=== PATIENT | male | born 1955 | race Caucasian/White ===

== ENCOUNTER 2019-01-04 01:07 | Inpatient (IN) ==
[2019-01-04] MEDS ORDERED: *HR* HYDROcodone/Acet 5/325 mg TABLET PO PRN (02:45)
[2019-01-04] MEDS ORDERED: Dextrose Gel 15 GM/37.5 ML TUBE PO PRN ×2 (02:45)
[2019-01-04] MEDS ORDERED: *HR* Dextrose 50 % in Water (Syg) 50 ML SYRINGE IVP PRN (02:45)
[2019-01-04] MEDS ORDERED: Acetaminophen 325 MG TABLET PO PRN (02:45)
[2019-01-04] MEDS ORDERED: Naloxone 0.4 MG/ML INJ IVP PRN (02:45)
[2019-01-04] MEDS ORDERED: Ondansetron 4 MG/2 ML VIAL IVP PRN (02:45)
[2019-01-04] MEDS ORDERED: D5% in Water 1,000 ML IVC PRN (02:45)
--- NOTE | 2019-01-04 02:56 | Internal Med History&Physical ---
Date of Encounter: 01/04/19 Time of Encounter: 01:30 Internal Medicine - H&P: HPI Chief complaint: fever, chills Admitted From: Hospital to Hospital Transfer Plans for Post Hospital Care: Home History of present illness: Mr. Snowden is a 63 year old male who presents in transfer from [facility] ER for concerns of severe sepsis. He had prostate biopsy performed on 01/02/[address] Dexter. He then developed fevers, chills, and night sweats last night prompting him to go to the ER. In the ER at [place], he was found to have evidence of sepsis. He was fluid resuscitated. Blood cultures and urine cultures were obtained, and he was given antibiotics. I was contacted by ER staff to transfer patient to [facility]. I agreed with the plan of care but also insisted that they give Flagyl in addition to Zosyn he received. Upon arrival to [facility], patient feels significantly better. I saw him shortly after his arrival. He denies any cough, congestion, shortness of breath, chest pain, abdominal pain, or perineal pain. He has had no flank pain, dysuria, or urgency. He has had some trace to moderate hematuria after his biopsy. Upon further questioning, he states he received a dose of antibiotics during his biopsy. He felt well afterwards until roughly 24 hours later. He denies any symptoms or concerns otherwise. Past Med Surg Social Fam HX - Past Medical History Attestation: Yes The following information was validated with the patient. Source: patient, old records reviewed Medical history: CHF, diabetes, GERD, hyperlipidemia, hypertension, myocardial infarction, other Additional medical history: sleep apnea-pt has cpap at home, settings unknown Psychiatric history: no psych history - Past Surgical History Surgical History: coronary bypass (CABG), LE stent(s) Additional surgical history: BIOPSY ON PROSTATE 01-02-19 - Social History Smoking Status: Current every day smoker Packs per day: 1/2 ppd Smokeless Tobacco Status: No Alcohol use: none Drug use: none Current living situation: Home, With Family Activity Level: Independent ambulation Recent Out of Country Travel Within the Last 8 Weeks: No - Family History Mother Hx Family Cardiac Disorders: Yes Hx Family Endocrine Disorder: Yes Internal Medicine - H&P: Meds Cyanocobalamin (B-12) [Vitamin B12] 1,000 mcg PO DAILY 01/03/19 [History] Dulaglutide [Trulicity] 0.75 mg SQ QWEEK 01/03/19 [History] Furosemide [Lasix] 20 mg PO DAILY 01/03/19 [History] Gabapentin [Neurontin] 300 mg PO HS 01/03/19 [History] Metformin HCl [Fortamet] 1,000 mg PO BID 01/03/19 [History] Nitroglycerin [Nitrostat] 0.4 mg SL PRN PRN 01/03/19 [History] Rosuvastatin [Crestor] 40 mg PO HS 01/03/19 [History] Sertraline [Zoloft] 50 mg PO DAILY 01/03/19 [History] Sitagliptin Phos/Metformin HCl [Janumet 50-1,000 mg Tablet] 1 each PO BID 01/03/19 [History] Zolpidem Tartrate 10 mg PO HS 01/03/19 [History] dilTIAZem HCl [Diltiazem ER] 240 mg PO DAILY 01/03/19 [History] Allergy/AdvReac Type Severity Reaction Status Date / Time No Known Allergies Allergy Verified 12/26/15 08:38 - Constitutional Constitutional: chills, fatigue, fever(s), weakness, no night sweats - EENT Eyes: no blurry vision, no change in vision Ears: no ear pain, no tinnitus Nose, mouth and throat: no nasal congestion, no sinus pressure, no sore throat - Cardiovascular Cardiovascular ROS IM: no chest pain, no dyspnea - Respiratory Respiratory: no cough, no dyspnea, no dyspnea on exertion, no chest congestion, no excessive phlegm production - Gastrointestinal Gastrointestinal: nausea, no abdominal pain, no diarrhea, no hematemesis, no hematochezia, no melena, no vomiting - Genitourinary Genitourinary ROS male: difficulty urinating, hematuria, no dysuria, no flank pain - Musculoskeletal Musculoskeletal ROS IM: no arthralgias, no back pain - Integumentary Integumentary IM: no rash, no jaundice - Neurological Neurological ROS: no disequilibrium, no dizziness, no focal weakness, no frequent falls, no headache(s) - Psychiatric Psychiatric: no anxiety, no depression - Endocrine Endocrine IM: no polydipsia, no polyuria - Allergic/Immunologic Allergic/Immunologic: no wheezing, no GI upset with certain foods - Constitutional Vitals: Temp Pulse Resp BP Pulse Ox 98.8 F 97 14 118/63 98 01/04/19 01:34 01/04/19 01:34 01/04/19 01:34 01/04/19 01:34 01/04/19 02:05 General appearance: Present: cooperative, mild distress, A&O X 3, pleasant, answers questions appropriately Exam: see below - Head Head exam: Present: atraumatic, normal inspection - Eye Eye exam: Present: EOMI, PERRL. Absent: scleral icterus Pupils: Present: normal accommodation - ENT ENT exam: Present: mucous membranes dry, normal exam, normal oropharynx - Neck Neck exam general surgery: Present: full ROM, supple, trachea midline. Absent: lymphadenopathy, tenderness, nuchal rigidity, thyromegaly - Respiratory Respiratory exam: Present: CTAB. Absent: chest wall tenderness, rales, rhonchi, wheezes - Cardiovascular Cardiovascular exam: Present: distant heart sounds, RRR, +S1, +S2, tachycardia (HR 110's). Absent: diastolic murmur, systolic murmur - GI/Abdominal GI/Abdominal exam: Present: normal bowel sounds, soft. Absent: guarding, hepatomegaly, mass, rebound, splenomegaly, tenderness - Extremities Exam Extremities exam: Present: full ROM, warm, radial pulses palpable and symmetrical. Absent: calf tenderness, pedal edema, tenderness - Back Exam Back exam: Present: normal inspection. Absent: CVA tenderness (L), CVA tenderness (R) - Neurological Exam Neurological exam: Present: alert, CN II-XII intact, oriented X3, no focal deficits, strengths equal and symetr throughout - Psychiatric Psychiatric exam: Present: normal affect, normal mood - Skin Skin exam: Present: dry, intact, warm. Absent: rash Internal Med - H&P Results - Labs Labs: I reviewed the labs from [place] and include the following: WBC 15.6 Hemoglobin 13.7 Hematocrit 39.6 Platelets 261 PT 11.4 PTT 33.4 INR 1.0 Sodium 136 Potassium 3.9 Chloride 102 Carbon dioxide 26 BUN 13 Creatinine 0.82 Glucose 162 Lactic acid 2.3, repeat 1.6 Urinalysis suggestive of UTI with blood - Diagnostic Studies Chest x-ray Status: image reviewed by me (negative) - Assessment and Plan (1) Sepsis Current Visit: Yes Status: Acute Assessment and plan: 1. S/P fluid resuscitation at [place]. 2. Blood and urine cultures collected at [place]. 3. Continue Zosyn and Flagyl for suspected /GI source. 4. No history to suggest prostatitis or prostate abscess. 5. Consult urology given sepsis post-procedure. Question need for imaging. Qualifiers: Sepsis type: sepsis due to unspecified organism Qualified Code(s): A41.9 - Sepsis, unspecified organism (2) Type 2 diabetes mellitus Current Visit: Yes Status: Chronic Assessment and plan: 1. Hold oral meds. 2. Will place on SSI and monitor glucose closely. 3. Adjust insulin dosing accordingly. Qualifiers: Diabetes mellitus usp insulin use: without supervisor long goods use Diabetes mellitus complication status: without complication Qualified Code(s): E11.9 - Type 2 diabetes mellitus without complications (3) CAD (coronary artery disease) Current Visit: Yes Status: Chronic Assessment and plan: 1. No symptoms of angina. 2. Continue home meds as appropriate once meds verified. 3. Obtain baseline EKG and monitor on telemetry. Qualifiers: Coronary Disease-Associated Artery/Lesion type: [place] artery [place] vs. transplanted heart: [place] heart Associated angina: without angina Qualified Code(s): I25.10 - Atherosclerotic heart disease of [place] coronary artery without angina pectoris (4) UTI (urinary tract infection) Current Visit: Yes Status: Suspected Assessment and plan: 1. Patient denies symptoms. 2. Follow urine culture. 3. Antibiotics as above. Qualifiers: Urinary tract infection type: acute cystitis Hematuria presence: with hematuria Qualified Code(s): N30.01 - Acute cystitis with hematuria (5) DVT prophylaxis Current Visit: Yes Status: Acute Assessment and plan: 1. Heparin SQ.
[2019-01-04] MEDS: 0.9 % Sodium Chloride w KCl 20 MEQ/1,000 ML MLS IVC SCH ×2 (03:53→11:30)
[2019-01-04 03:55] LABS: Basophils # 0.1 K/mcL (0.0-0.2); Basophils % 0.4 %; Eosinophils # 0.2 K/mcL (0.0-0.6); Eosinophils % 1.1 %; Hematocrit 40.6 % (37.5-50.1); Hemoglobin 13.4 g/dL (12.9-16.9); Immature Granulocytes % 0.4 % (0-4); Lymphocytes % 12.1 %; Mean Corpuscular Volume 90.8 fL (83.0-100.0); Mean Platelet Volume 10.6 fL (9.4-12.4); Monocytes # 0.7 K/mcL (0.0-1.3); Neutrophils # 13.6 K/mcL (1.6-8.9); Platelet Count 222 K/mcL (140-400); Red Blood Count 4.47 M/mcL (4.19-5.50); Red Cell Distribution Width 12.9 % (11.5-14.5)
[2019-01-04 04:13] LABS: Alanine Aminotransferase 16 Units/L (7-52); Albumin 4.1 g/dL (3.5-5.7); Albumin/Globulin Ratio 1.7 (1.1-2.2); Alkaline Phosphatase 73 Units/L (34-104); Aspartate Amino Transferase 17 Units/L (13-39); BUN/Creatinine Ratio 15 (6-26); Bilirubin,Total 0.6 mg/dL (0.3-1.0); Blood Urea Nitrogen 12 mg/dL (8-23); Calcium 8.9 mg/dL (8.6-10.3); Carbon Dioxide 22 mEq/L (23-29); Chloride 106 mEq/L (98-107); Globulin 2.4 g/dL (2.4-3.5); Glucose 132 mg/dL (70-105); Magnesium 1.4 mg/dL (1.6-2.6); Osmolality,Calculated 290 (280-300); Phosphorous 3.5 mg/dL (2.7-4.5); Potassium 3.8 mEq/L (3.5-5.1); Sodium 139 mEq/L (136-145); Total Protein 6.5 g/dL (6.4-8.9); eGFR For Non-African Americans > 60 (> 60)
[2019-01-04] MEDS: *HR* Heparin 5,000 UNIT/ML VIAL SQ SCH ×3 (06:15→22:20)
[2019-01-04] MEDS ORDERED: MetroNIDAZOLE 500 MG/100 ML 500 MG/100 ML BAG IVPB SCH (08:00)
[2019-01-04] MEDS: Piperacillin/Tazobactam 3.375 GM in 0.9 % Sodium Chloride Mini Bag 100 ML IVPB SCH ×2 (08:04→18:03)
[2019-01-04] MEDS: Insulin LISPRO 300 UNITS/3 ML VIAL SQ SCH ×3 (08:05→18:04)
--- NOTE | 2019-01-04 10:25 | Urology - Consult Note ---
<Delmy Hough N - Last Filed: 01/04/19 10:33> Date of Encounter: 01/04/19 Time of Encounter: 09:10 - Assessment and Plan (1) Sepsis Current Visit: Yes Status: Acute Assessment and plan: Patient is a 63-year-old male who presents with a history of infection following prostate biopsy. Blood and urine cultures are pending. Vital signs are currently stable and afebrile, although, patient is experiencing some tach ycardia. Patient appears very well clinically. May consider antibiotic change from Zosyn and Flagyl to ertapenem. May also consider consultation to infectious disease. Dr. Dexter will be in to reevaluate patient this afternoon. Qualifiers: Sepsis type: sepsis due to unspecified organism Qualified Code(s): A41.9 - Sepsis, unspecified organism Urology CN:HPI Consult date: 01/04/19 Reason for consult Urology: Other (sepsis s/p prostate biopsy) Requesting physician: Fili Madrid History of present illness: Patient is a 63-year-old male who presents 2 days status post ultrasound guided transrectal prostate biopsy with Dr. Dexter. Patient has an elevated PSA of 10.73, and he was premedicated with 80 mg of IM gentamicin. Patient's prostate biopsy was uneventful, and he was dismissed in satisfactory condition. Patient states last night he began experiencing chills and a fever to 103F. Patient subsequently presented to [facility] emergency department where he was found to be tachycardic, febrile and with leukocytosis. Patient was transferred to [facility] for concern for sepsis. Currently, patient is sitting upright in bed in no apparent distress, and he denies any dysuria, perineal pa in, rectal pain, hematochezia, gross hematuria, fever, chills, chest pain, dyspnea, urgency, frequency, incontinence or hesitancy. Patient denies any known family history of prostate cancer. Past Med Surg Social Fam HX - Past Medical History Medical history: CHF, diabetes, GERD, hyperlipidemia, hypertension, myocardial infarction, other Additional medical history: sleep apnea-pt has cpap at home, settings unknown Psychiatric history: no psych history - Past Surgical History Surgical History: coronary bypass (CABG), LE stent(s) Additional surgical history: BIOPSY ON PROSTATE 01-02-19 - Social History Smoking Status: Current every day smoker Packs per day: 1/2 ppd Smokeless Tobacco Status: No Alcohol use: none Drug use: none - Family History Mother Hx Family Cardiac Disorders: Yes Hx Family Endocrine Disorder: Yes Medications and Allergies Cyanocobalamin (B-12) [Vitamin B12] 1,000 mcg PO DAILY 01/03/19 [History] Dulaglutide [Trulicity] 0.75 mg SQ TH 01/03/19 [History] Furosemide [Lasix] 20 mg PO DAILY 01/03/19 [History] Gabapentin [Neurontin] 300 mg PO HS 01/03/19 [History] Nitroglycerin [Nitrostat] 0.4 mg SL Q5M PRN 01/03/19 [History] Rosuvastatin [Crestor] 40 mg PO HS 01/03/19 [History] Sertraline [Zoloft] 50 mg PO DAILY 01/03/19 [History] Zolpidem Tartrate 10 mg PO HS 01/03/19 [History] dilTIAZem HCl [Diltiazem ER] 240 mg PO DAILY 01/03/19 [History] Aspirin [Adult Aspirin] 81 mg PO DAILY 01/04/19 [History] Clopidogrel [Plavix] 75 mg PO DAILY 01/04/19 [History] Metformin HCl 1,000 mg PO BID 01/04/19 [History] Saxagliptin HCl/Metformin HCl [Kombiglyze Xr 2.5-1,000 mg Tab] 1 tab PO DAILY 01/04/19 [History] Allergy/AdvReac Type Severity Reaction Status Date / Time No Known Allergies Allergy Verified 01/04/19 08:43 Review of Systems - Constitutional chills, fatigue, fever(s) - EENT Nose, mouth and throat: no dizziness, no headache(s) - Cardiovascular no chest pain, no diaphoresis, no dyspnea - Respiratory no cough, no dyspnea - Gastrointestinal nausea, no abdominal pain, no change in bowel habits (patient had normal BM yesterday ), no vomiting - Genitourinary no change in urinary stream, no difficulty urinating, no dysuria, no hematuria, no nocturia, no urinary frequency, no urinary hesitancy, no urinary incontinence, no urinary urgency - Musculoskeletal no back pain, no muscle weakness - Integumentary no erythema, no rash - Neurological no confusion, no syncope - Psychiatric no anxiety, no confusion - Hematologic/Lymphatic no easy bleeding, no easy bruising - Allergic/Immunologic no throat swelling, no wheezing Exam Initial Vital Signs Temp Pulse Resp BP Pulse Ox 98.8 F 97 14 118/63 94 01/04/19 01:34 01/04/19 01:34 01/04/19 01:34 01/04/19 01:34 01/04/19 01:34 - General physical appearance Present: well developed, no distress, no pain - Eyes Present: PERRL, normal ocular movement - ENT Present: normal nares, no hearing loss, no congestion - Neck Present: no masses, trachea midline, no lymphadenopathy - Respiratory Present: normal respiratory effort - Cardiovascular Cardiovascular exam IM: tachycardia - Abdomen Abdomen: Present: soft, non tender - Genitourinary other (No CVAT) - Integumentary Present: no rash, no abnormal pigmentation - Neurologic Present: normal coordination - Musculoskeletal Present: other (Normal posture) Urology Results - Labs 01/04/19 03:42 01/04/19 03:42 Abnormal lab results WBC 16.6 K/mcL (4.3-11.1) H 01/04/19 03:42 13.6 K/mcL (1.6-8.9) H 01/04/19 03:42 Carbon Dioxide 22 mEq/L (23-29) L 01/04/19 03:42 Glucose 132 mg/dL (70-105) H 01/04/19 03:42 Magnesium 1.4 mg/dL (1.6-2.6) L 01/04/19 03:42 Diabetes panel 01/04/19 Range/Units 03:42 Sodium 139 (136-145) mEq/L Potassium 3.8 (3.5-5.1) mEq/L Chloride 106 (98-107) mEq/L Carbon Dioxide 22 L (23-29) mEq/L BUN 12 (8-23) mg/dL Creatinine 0.80 (0.70-1.30) mg/dL Glucose 132 H (70-105) mg/dL Calcium 8.9 (8.6-10.3) mg/dL AST 17 (13-39) Units/L ALT 16 (7-52) Units/L Alkaline Phosphatase 73 (34-104) Units/L Albumin 4.1 (3.5-5.7) g/dL Calcium panel 01/04/19 Range/Units 03:42 Calcium 8.9 (8.6-10.3) mg/dL Phosphorus 3.5 (2.7-4.5) mg/dL Albumin 4.1 (3.5-5.7) g/dL Pituitary panel 01/04/19 Range/Units 03:42 Sodium 139 (136-145) mEq/L Potassium 3.8 (3.5-5.1) mEq/L Chloride 106 (98-107) mEq/L Carbon Dioxide 22 L (23-29) mEq/L BUN 12 (8-23) mg/dL Creatinine 0.80 (0.70-1.30) mg/dL Glucose 132 H (70-105) mg/dL Calcium 8.9 (8.6-10.3) mg/dL Adrenal panel 01/04/19 Range/Units 03:42 Sodium 139 (136-145) mEq/L Potassium 3.8 (3.5-5.1) mEq/L Chloride 106 (98-107) mEq/L Carbon Dioxide 22 L (23-29) mEq/L BUN 12 (8-23) mg/dL Creatinine 0.80 (0.70-1.30) mg/dL Glucose 132 H (70-105) mg/dL Calcium 8.9 (8.6-10.3) mg/dL Total Bilirubin 0.6 (0.3-1.0) mg/dL AST 17 (13-39) Units/L ALT 16 (7-52) Units/L Alkaline Phosphatase 73 (34-104) Units/L Albumin 4.1 (3.5-5.7) g/dL All other labs normal. Consult Discharge Plan - Plan Referrals: NONE,PCP [Primary Care Provider] - <Nilesh Dexter - Last Filed: 01/04/19 15:54> Date of Encounter: 01/04/19 Urology CN:HPI History of present illness: Patient was seen and examined independently. I agree with the plan as written by Delmy Hough. At this point patient appears to possibly have had sepsis from post prostate biopsy. Agree with continuation of broad-spectrum antimicrobial coverage until cultures return. Patient without significant family history of prostate cancer. Pathology still pending at this time for elevated PSA. Exam Initial Vital Signs Temp Pulse Resp BP Pulse Ox 98.8 F 97 14 118/63 94 01/04/19 01:34 01/04/19 01:34 01/04/19 01:34 01/04/19 01:34 01/04/19 01:34 Urology Results - Labs 01/04/19 03:42 01/04/19 03:42 Abnormal lab results WBC 16.6 K/mcL (4.3-11.1) H 01/04/19 03:42 13.6 K/mcL (1.6-8.9) H 01/04/19 03:42 Carbon Dioxide 22 mEq/L (23-29) L 01/04/19 03:42 Glucose 132 mg/dL (70-105) H 01/04/19 03:42 Magnesium 1.4 mg/dL (1.6-2.6) L 01/04/19 03:42 Diabetes panel 01/04/19 Range/Units 03:42 Sodium 139 (136-145) mEq/L Potassium 3.8 (3.5-5.1) mEq/L Chloride 106 (98-107) mEq/L Carbon Dioxide 22 L (23-29) mEq/L BUN 12 (8-23) mg/dL Creatinine 0.80 (0.70-1.30) mg/dL Glucose 132 H (70-105) mg/dL Calcium 8.9 (8.6-10.3) mg/dL AST 17 (13-39) Units/L ALT 16 (7-52) Units/L Alkaline Phosphatase 73 (34-104) Units/L Albumin 4.1 (3.5-5.7) g/dL Calcium panel 01/04/19 Range/Units 03:42 Calcium 8.9 (8.6-10.3) mg/dL Phosphorus 3.5 (2.7-4.5) mg/dL Albumin 4.1 (3.5-5.7) g/dL Pituitary panel 01/04/19 Range/Units 03:42 Sodium 139 (136-145) mEq/L Potassium 3.8 (3.5-5.1) mEq/L Chloride 106 (98-107) mEq/L Carbon Dioxide 22 L (23-29) mEq/L BUN 12 (8-23) mg/dL Creatinine 0.80 (0.70-1.30) mg/dL Glucose 132 H (70-105) mg/dL Calcium 8.9 (8.6-10.3) mg/dL Adrenal panel 01/04/19 Range/Units 03:42 Sodium 139 (136-145) mEq/L Potassium 3.8 (3.5-5.1) mEq/L Chloride 106 (98-107) mEq/L Carbon Dioxide 22 L (23-29) mEq/L BUN 12 (8-23) mg/dL Creatinine 0.80 (0.70-1.30) mg/dL Glucose 132 H (70-105) mg/dL Calcium 8.9 (8.6-10.3) mg/dL Total Bilirubin 0.6 (0.3-1.0) mg/dL AST 17 (13-39) Units/L ALT 16 (7-52) Units/L Alkaline Phosphatase 73 (34-104) Units/L Albumin 4.1 (3.5-5.7) g/dL All other labs normal.
[2019-01-04] MEDS ORDERED: Nitroglycerin 0.4 MG TAB.SUBL SL PRN (10:41)
[2019-01-04] MEDS ORDERED: DILTIAZEM HCL 240 MG PO SCH (10:45)
--- NOTE | 2019-01-04 10:47 | Event Note ---
Date of Encounter: 01/04/19 Time of Encounter: 10:42 Patient feels better today. No fever reported this morning. No dysuria. No nausea or vomiting. No abdominal pain. Is tachycardic most likely due to not getting his Cardizem. He states his last dose of this medication was on Tuesday. We will restart her and continue to monitor heart rate.
[2019-01-04] MEDS: Diltiazem CD (24hr) 240 MG CAPSULE PO SCH (11:30)
--- NOTE | 2019-01-04 18:18 | Electrocardiograph Report ---
[place] [id number] Test Date: 2019-01-04 Pat Name: Gerald Snowden Department: 111 Room: 2NE17 Gender: M Safety Admin Assistant: Raw : 1955 Requested By: Fili Madrid Order Number: [id number] Reading MD: Bhavani Rosario Measurements Intervals [place] Rate: 114 P: 50 CA: 191 QRS: -7 QRSD: 113 T: 36 QT: 384 QTc: 452 Interpretive Statements SINUS TACHYCARDIA INFERIOR MYOCARDIAL INFARCTION [40+ ms Q WAVE AND/OR ST/T ABNORMALITY IN II/aVF], PROBABLY OLD Electronically Signed On 01-04-2019 18:16:59 EDT by Bhavani Rosario
[2019-01-04] MEDS: Gabapentin 300 MG CAPSULE PO SCH (20:51)
[2019-01-05] MEDS: Piperacillin/Tazobactam 3.375 GM in 0.9 % Sodium Chloride Mini Bag 100 ML IVPB SCH ×3 (00:56→16:12)
[2019-01-05 05:53] LABS: Basophils # 0.1 K/mcL (0.0-0.2); Basophils % 0.4 %; Eosinophils # 0.1 K/mcL (0.0-0.6); Eosinophils % 0.7 %; Hematocrit 33.7 % (37.5-50.1); Immature Granulocytes % 0.4 % (0-4); Lymphocytes % 12.5 %; Mean Corpuscular HGB Conc 33.5 g/dL (31.6-35.5); Mean Corpuscular Hemoglobin 30.1 pg (28.0-33.3); Mean Corpuscular Volume 89.6 fL (83.0-100.0); Mean Platelet Volume 10.9 fL (9.4-12.4); Monocytes # 1.1 K/mcL (0.0-1.3); Monocytes % 6.9 %; Neutrophils # 12.9 K/mcL (1.6-8.9); Platelet Count 218 K/mcL (140-400); Red Blood Count 3.76 M/mcL (4.19-5.50); Red Cell Distribution Width 13.2 % (11.5-14.5); Segmented Neutrophils % 79.1 %
[2019-01-05 06:10] LABS: Hemoglobin 11.3 g/dL (12.9-16.9)
[2019-01-05 06:14] LABS: BUN/Creatinine Ratio 12 (6-26); Blood Urea Nitrogen 9 mg/dL (8-23); Calcium 8.9 mg/dL (8.6-10.3); Carbon Dioxide 22 mEq/L (23-29); Chloride 103 mEq/L (98-107); Glucose 170 mg/dL (70-105); Osmolality,Calculated 279 (280-300); Potassium 3.6 mEq/L (3.5-5.1); Sodium 133 mEq/L (136-145); eGFR For Non-African Americans > 60 (> 60)
[2019-01-05] MEDS: *HR* Heparin 5,000 UNIT/ML VIAL SQ SCH ×3 (06:29→20:22)
[2019-01-05] MEDS: Insulin LISPRO 300 UNITS/3 ML VIAL SQ SCH ×3 (07:52→17:26)
[2019-01-05] MEDS: Aspirin Enteric Coated 81 MG Tablet PO SCH (07:53)
[2019-01-05] MEDS: Diltiazem CD (24hr) 240 MG CAPSULE PO SCH (07:53)
--- NOTE | 2019-01-05 08:28 | Urology Progress Note ---
<Delmy Hough N - Last Filed: 01/05/19 08:25> Date of Encounter: 01/05/19 Time of Encounter: 08:00 - Assessment and Plan (1) Urinary tract infection following procedure Current Visit: Yes Status: Acute Assessment and plan: Patient is a 63-year-old male who presents with an infection following a prostate biopsy. Preliminary blood cultures are negative. Urine culture is pending. Patient has low-grade temperature of 99.7. Tachycardia resolved, and patient has resumed Cardizem. Clinically, patient appears very well and is inquiring about discharge. Recommend patient being 24 hours afebrile with culture results before he is eligible for discharge. Patient will require an additional 10 days of culture sensitive oral antibiotics. Progress Note Subjective: feels better Narrative: Patient seen and examined sitting upright in bed eating breakfast in no apparent distress. Patient is tolerating normal diet without nausea or vomiting. Pa tient is voiding without difficulty. Patient reports dysuria and hematuria have resolved. Patient denies any fever or chills. Objective Initial Vital Signs Temp Pulse Resp BP Pulse Ox 98.8 F 97 14 118/63 94 01/04/19 01:34 01/04/19 01:34 01/04/19 01:34 01/04/19 01:34 01/04/19 01:34 - General physical appearance Present: no distress, no pain - Respiratory Present: normal expansion, normal respiratory effort - Abdomen Present: soft, non tender - Integumentary Present: no rash, no abnormal pigmentation - Musculoskeletal Present: normal posture - Psychiatric Present: oriented to time, oriented to person, oriented to place, speech is normal, memory intact - Labs 01/05/19 04:50 01/05/19 04:50 Diabetes panel 01/05/19 Range/Units 04:50 Sodium 133 L (136-145) mEq/L Potassium 3.6 (3.5-5.1) mEq/L Chloride 103 (98-107) mEq/L Carbon Dioxide 22 L (23-29) mEq/L BUN 9 (8-23) mg/dL Creatinine 0.76 (0.70-1.30) mg/dL Glucose 170 H (70-105) mg/dL Calcium 8.9 (8.6-10.3) mg/dL Calcium panel 01/05/19 Range/Units 04:50 Calcium 8.9 (8.6-10.3) mg/dL Pituitary panel 01/05/19 Range/Units 04:50 Sodium 133 L (136-145) mEq/L Potassium 3.6 (3.5-5.1) mEq/L Chloride 103 (98-107) mEq/L Carbon Dioxide 22 L (23-29) mEq/L BUN 9 (8-23) mg/dL Creatinine 0.76 (0.70-1.30) mg/dL Glucose 170 H (70-105) mg/dL Calcium 8.9 (8.6-10.3) mg/dL Adrenal panel 01/05/19 Range/Units 04:50 Sodium 133 L (136-145) mEq/L Potassium 3.6 (3.5-5.1) mEq/L Chloride 103 (98-107) mEq/L Carbon Dioxide 22 L (23-29) mEq/L BUN 9 (8-23) mg/dL Creatinine 0.76 (0.70-1.30) mg/dL Glucose 170 H (70-105) mg/dL Calcium 8.9 (8.6-10.3) mg/dL Consult Discharge Plan - Plan Referrals: NONE,PCP [Primary Care Provider] - <Nilesh Dexter - Last Filed: 01/05/19 09:16> Date of Encounter: 01/05/19 Progress Note Narrative: I discussed with Delmy Hough. I did not personally evaluate the patient. Patient will be called next week for follow up and for pathology results. Objective Initial Vital Signs Temp Pulse Resp BP Pulse Ox 98.8 F 97 14 118/63 94 01/04/19 01:34 01/04/19 01:34 01/04/19 01:34 01/04/19 01:34 01/04/19 01:34 - Labs 01/05/19 04:50 01/05/19 04:50 Diabetes panel 01/05/19 Range/Units 04:50 Sodium 133 L (136-145) mEq/L Potassium 3.6 (3.5-5.1) mEq/L Chloride 103 (98-107) mEq/L Carbon Dioxide 22 L (23-29) mEq/L BUN 9 (8-23) mg/dL Creatinine 0.76 (0.70-1.30) mg/dL Glucose 170 H (70-105) mg/dL Calcium 8.9 (8.6-10.3) mg/dL Calcium panel 01/05/19 Range/Units 04:50 Calcium 8.9 (8.6-10.3) mg/dL Pituitary panel 01/05/19 Range/Units 04:50 Sodium 133 L (136-145) mEq/L Potassium 3.6 (3.5-5.1) mEq/L Chloride 103 (98-107) mEq/L Carbon Dioxide 22 L (23-29) mEq/L BUN 9 (8-23) mg/dL Creatinine 0.76 (0.70-1.30) mg/dL Glucose 170 H (70-105) mg/dL Calcium 8.9 (8.6-10.3) mg/dL Adrenal panel 01/05/19 Range/Units 04:50 Sodium 133 L (136-145) mEq/L Potassium 3.6 (3.5-5.1) mEq/L Chloride 103 (98-107) mEq/L Carbon Dioxide 22 L (23-29) mEq/L BUN 9 (8-23) mg/dL Creatinine 0.76 (0.70-1.30) mg/dL Glucose 170 H (70-105) mg/dL Calcium 8.9 (8.6-10.3) mg/dL
--- NOTE | 2019-01-05 12:24 | Internal Med Progress Note ---
Hospitalist Progress Note - Encounter Date of Encounter: 01/05/19 Time of Encounter: 12:21 - Subjective Interval History: Patient feels much better. Denies any nausea or vomiting or diarrhea. No abdominal pain. No dysuria. He did have low-grade fever with a MAXIMUM TEMPERATURE of 99.9 earlier this morning. - Exam Vitals: Temp Pulse Resp BP Pulse Ox 99.7 F H 94 16 110/67 93 01/05/19 07:05 01/05/19 07:05 01/05/19 07:05 01/05/19 07:05 01/05/19 07:05 Exam: General: Patient is alert, no acute distress, oriented x 3 Respiratory: Good respiratory effort. Normal breath sounds. No wheezing or crackles. Cardiovascular: Regular rate and rhythm. s1 and s2 normal No clicks, rubs, gallops, or murmurs. No pedal edema Abdomen: Abdomen is soft, nontender. Bowel sounds are present Musculoskeletal: Spontaneously moving all extremities Skin: warm, dry, intact. Neuro: Alert oriented x 3 normal cranial nerves, no focal deficits - Assessment and Plan (1) Sepsis Current Visit: Yes Status: Acute Assessment and Plan: WBC count slightly improved to 16.3 today. Patient remains on Zosyn. He has continued to have low-grade fevers especially this morning with MAXIMUM TEMPERATURE of 99.9. Urology recommends keeping the patient in the hospital till he is afebrile for 24 hours. Urine cultures and blood cultures have been negative so far. Moderate risk for complications (2) Urinary tract infection following procedure Current Visit: Yes Status: Acute Assessment and Plan: Management as above per urology (3) UTI (urinary tract infection) Current Visit: Yes Status: Acute (4) Type 2 diabetes mellitus Current Visit: Yes Status: Chronic Assessment and Plan: Will place patient on low-dose long-acting insulin. Continue sliding scale coverage (5) CAD (coronary artery disease) Current Visit: Yes Status: Chronic Assessment and Plan: No chest pain. Continue home medications (6) DVT prophylaxis Current Visit: Yes Status: Acute Assessment and Plan: Continue subcutaneous heparin - Time Spent with Patient Total time spent is greater than 50% in coordination of care (as documented) at patient's floor/unit and/or counseling patient: Internal Medicine: Result - Labs CBC & Chem 7: 01/05/19 04:50 01/05/19 04:50 Labs: Short CBC 01/05/19 Range/Units 04:50 WBC 16.3 H (4.3-11.1) K/mcL Hgb 11.3 L D (12.9-16.9) g/dL Hct 33.7 L (37.5-50.1) % Plt Count 218 (140-400) K/mcL Neutrophils # 12.9 H (1.6-8.9) K/mcL BMP 01/05/19 04:50 Sodium 133 L Potassium 3.6 Chloride 103 Carbon Dioxide 22 L BUN 9 Creatinine 0.76 Glucose 170 H Calcium 8.9 Consult Discharge Plan - Plan Referrals: NONE,PCP [Primary Care Provider] - (1) Sepsis Qualifiers: Sepsis type: sepsis due to unspecified organism Qualified Code(s): A41.9 - Sepsis, unspecified organism (3) UTI (urinary tract infection) Qualifiers: Urinary tract infection type: acute cystitis Hematuria presence: with hematuria Qualified Code(s): N30.01 - Acute cystitis with hematuria (4) Type 2 diabetes mellitus Qualifiers: Diabetes mellitus alf insulin use: without intermediate project manager use Diabetes mellitus complication status: without complication Qualified Code(s): E11.9 - Type 2 diabetes mellitus without complications (5) CAD (coronary artery disease) Qualifiers: Coronary Disease-Associated Artery/Lesion type: [place] artery [place] vs. transplanted heart: [place] heart Associated angina: without angina Qualified Code(s): I25.10 - Atherosclerotic heart disease of [place] coronary artery without angina pectoris
[2019-01-05] MEDS: Gabapentin 300 MG CAPSULE PO SCH (20:14)
[2019-01-05] MEDS ORDERED: Insulin DETEMIR 100 UNIT/ML X5UNITS SQ SCH (21:00)
[2019-01-06] MEDS: Piperacillin/Tazobactam 3.375 GM in 0.9 % Sodium Chloride Mini Bag 100 ML IVPB SCH ×2 (00:40→08:38)
[2019-01-06] MEDS: *HR* Heparin 5,000 UNIT/ML VIAL SQ SCH (05:10)
[2019-01-06 05:29] LABS: Basophils # 0.1 K/mcL (0.0-0.2); Basophils % 0.5 %; Eosinophils # 0.3 K/mcL (0.0-0.6); Eosinophils % 2.9 %; Hematocrit 33.6 % (37.5-50.1); Hemoglobin 11.6 g/dL (12.9-16.9); Immature Granulocytes % 0.3 % (0-4); Lymphocytes % 17.8 %; Mean Corpuscular HGB Conc 34.5 g/dL (31.6-35.5); Mean Corpuscular Hemoglobin 30.5 pg (28.0-33.3); Mean Corpuscular Volume 88.4 fL (83.0-100.0); Mean Platelet Volume 10.3 fL (9.4-12.4); Monocytes # 0.9 K/mcL (0.0-1.3); Monocytes % 8.3 %; Platelet Count 221 K/mcL (140-400); Red Cell Distribution Width 13.1 % (11.5-14.5); Segmented Neutrophils % 70.2 %
[2019-01-06 07:24] LABS: BUN/Creatinine Ratio 15 (6-26); Blood Urea Nitrogen 11 mg/dL (8-23); Calcium 9.1 mg/dL (8.6-10.3); Carbon Dioxide 22 mEq/L (23-29); Chloride 103 mEq/L (98-107); Glucose 163 mg/dL (70-105); Osmolality,Calculated 283 (280-300); Potassium 3.7 mEq/L (3.5-5.1); Sodium 135 mEq/L (136-145); eGFR For Non-African Americans > 60 (> 60)
[2019-01-06 07:32] VITALS: BP 132/89
--- NOTE | 2019-01-06 07:49 | Urology Progress Note ---
Date of Encounter: 01/06/19 Time of Encounter: 07:48 - Assessment and Plan (1) Sepsis Current Visit: Yes Status: Acute Assessment and plan: 63-year-old man with a urinary tract infection and sepsis. Urine cultures are still pending. Continue Zosyn. He has been afebrile for over 24 hours. Once urine cultures return, we will try to transition to oral antibiotic. Anticipate discharge home once final sensitivities are back from microbiology. Qualifiers: Sepsis type: sepsis due to unspecified organism Qualified Code(s): A41.9 - Sepsis, unspecified organism (2) UTI (urinary tract infection) Current Visit: Yes Status: Acute Qualifiers: Urinary tract infection type: acute cystitis Hematuria presence: with hematuria Qualified Code(s): N30.01 - Acute cystitis with hematuria Progress Note Narrative: 63-year-old man with prostatitis after prostate biopsy. Fever curve is improving. He is currently on Zosyn. He feels much better. Urine cultures are growing out gram-negative rods. Objective Initial Vital Signs Temp Pulse Resp BP Pulse Ox 98.8 F 97 14 118/63 94 01/04/19 01:34 01/04/19 01:34 01/04/19 01:34 01/04/19 01:34 01/04/19 01:34 - General physical appearance Present: well developed, well nourished, no distress - Respiratory Present: normal respiratory effort - Abdomen Present: soft - Labs 01/06/19 05:18 01/06/19 05:18 Diabetes panel 01/06/19 Range/Units 05:18 Sodium 135 L (136-145) mEq/L Potassium 3.7 (3.5-5.1) mEq/L Chloride 103 (98-107) mEq/L Carbon Dioxide 22 L (23-29) mEq/L BUN 11 (8-23) mg/dL Creatinine 0.75 (0.70-1.30) mg/dL Glucose 163 H (70-105) mg/dL Calcium 9.1 (8.6-10.3) mg/dL Calcium panel 01/06/19 Range/Units 05:18 Calcium 9.1 (8.6-10.3) mg/dL Pituitary panel 01/06/19 Range/Units 05:18 Sodium 135 L (136-145) mEq/L Potassium 3.7 (3.5-5.1) mEq/L Chloride 103 (98-107) mEq/L Carbon Dioxide 22 L (23-29) mEq/L BUN 11 (8-23) mg/dL Creatinine 0.75 (0.70-1.30) mg/dL Glucose 163 H (70-105) mg/dL Calcium 9.1 (8.6-10.3) mg/dL Adrenal panel 01/06/19 Range/Units 05:18 Sodium 135 L (136-145) mEq/L Potassium 3.7 (3.5-5.1) mEq/L Chloride 103 (98-107) mEq/L Carbon Dioxide 22 L (23-29) mEq/L BUN 11 (8-23) mg/dL Creatinine 0.75 (0.70-1.30) mg/dL Glucose 163 H (70-105) mg/dL Calcium 9.1 (8.6-10.3) mg/dL Consult Discharge Plan - Plan Referrals: NONE,PCP [Primary Care Provider] -
[2019-01-06] MEDS: Insulin LISPRO 300 UNITS/3 ML VIAL SQ SCH (08:33)
[2019-01-06] MEDS: Diltiazem CD (24hr) 240 MG CAPSULE PO SCH (08:34)
[2019-01-06] MEDS: Aspirin Enteric Coated 81 MG Tablet PO SCH (08:34)
[2019-01-06] MEDS ORDERED: Furosemide 20 MG TABLET PO SCH (09:00)
--- NOTE | 2019-01-06 10:55 | Discharge Summary ---
- NOTES TO OUTPATIENT PROVIDER Notes to Outpatient Provider: Patient admitted here for urine infection following urology procedure. Urine cultures positive for Klebsiella. Patient will be discharged on antibiotics for this. Date of Encounter: 01/06/19 Time of Encounter: 10:37 - Discharge Diagnosis (1) Sepsis Priority: Primary Status: Acute Qualifiers: Sepsis type: sepsis due to unspecified organism Qualified Code(s): A41.9 - Sepsis, unspecified organism (2) Urinary tract infection following procedure Priority: Secondary Status: Acute (3) UTI (urinary tract infection) Priority: Secondary Status: Acute Qualifiers: Urinary tract infection type: acute cystitis Hematuria presence: with hematuria Qualified Code(s): N30.01 - Acute cystitis with hematuria (4) Type 2 diabetes mellitus Priority: Secondary Status: Chronic Qualifiers: Diabetes mellitus longwall machine operator helper insulin use: without longwall machine operator helper use Diabetes mellitus complication status: without complication Qualified Code(s): E11.9 - Type 2 diabetes mellitus without complications (5) CAD (coronary artery disease) Priority: Secondary Status: Chronic Qualifiers: Coronary Disease-Associated Artery/Lesion type: [place] artery [place] vs. transplanted heart: [place] heart Associated angina: without angina Qualified Code(s): I25.10 - Atherosclerotic heart disease of [place] coronary artery without angina pectoris (6) DVT prophylaxis Priority: Secondary Status: Acute Hospital course: Mr. Snowden is a 63 year old male Patient with history of diabetes, hypertension, hyperlipidemia was admitted here for urine infection following urology procedure. He was evaluated by urology. He did have fevers. Was diagnosed with sepsis. Blood cultures have been negative. He received IV antibiotics. His no longer having fevers now. His symptoms have resolved. He will be discharged today. Urine cultures positive for Klebsiella. Patient will be discharged on antibiotics for this. Discharge discussed with: patient - Time Spent with Patient Total time spent providing and/or coordinating discharge services: Time spent: Less than 30 minutes, Greater than 30 minutes (32 min) - Discharge Medications Prescriptions: New Ciprofloxacin [Cipro] 500 mg PO BID #10 tablet Lactobacillus Acidophilus [Acidophilus] 1 each PO BID #30 capsule Continued Metformin HCl 1,000 mg PO BID Saxagliptin HCl/Metformin HCl [Kombiglyze Xr 2.5-1,000 mg Tab] 1 tab PO DAILY Clopidogrel [Plavix] 75 mg PO DAILY Aspirin [Adult Aspirin] 81 mg PO DAILY Rosuvastatin [Crestor] 40 mg PO HS Cyanocobalamin (B-12) [Vitamin B12] 1,000 mcg PO DAILY dilTIAZem HCl [Diltiazem ER] 240 mg PO DAILY Gabapentin [Neurontin] 300 mg PO HS Furosemide [Lasix] 20 mg PO DAILY Sertraline [Zoloft] 50 mg PO DAILY Nitroglycerin [Nitrostat] 0.4 mg SL Q5M PRN PRN Reason: Chest Pain Zolpidem Tartrate 10 mg PO HS Dulaglutide [Trulicity] 0.75 mg SQ TH Home Medications: Cyanocobalamin (B-12) [Vitamin B12] 1,000 mcg PO DAILY 01/03/19 [History] Dulaglutide [Trulicity] 0.75 mg SQ TH 01/03/19 [History] Furosemide [Lasix] 20 mg PO DAILY 01/03/19 [History] Gabapentin [Neurontin] 300 mg PO HS 01/03/19 [History] Nitroglycerin [Nitrostat] 0.4 mg SL Q5M PRN 01/03/19 [History] Rosuvastatin [Crestor] 40 mg PO HS 01/03/19 [History] Sertraline [Zoloft] 50 mg PO DAILY 01/03/19 [History] Zolpidem Tartrate 10 mg PO HS 01/03/19 [History] dilTIAZem HCl [Diltiazem ER] 240 mg PO DAILY 01/03/19 [History] Aspirin [Adult Aspirin] 81 mg PO DAILY 01/04/19 [History] Clopidogrel [Plavix] 75 mg PO DAILY 01/04/19 [History] Metformin HCl 1,000 mg PO BID 01/04/19 [History] Saxagliptin HCl/Metformin HCl [Kombiglyze Xr 2.5-1,000 mg Tab] 1 tab PO DAILY 01/04/19 [History] Ciprofloxacin [Cipro] 500 mg PO BID #10 tablet 01/06/19 [Rx] Lactobacillus Acidophilus [Acidophilus] 1 each PO BID #30 capsule 01/06/19 [Rx] Allergies/Adverse Reactions: Allergy/AdvReac Type Severity Reaction Status Date / Time No Known Allergies Allergy Verified 01/04/19 08:43 Date of admission: 01/04/19 01:07 Primary care physician: PCP NONE Consults: 01/04/19 02:48 Consult to Physician [CONS] Routine Consulting Provider: Tucker De Souza Reason for Consult: sepsis S/P prostate biopsy Call Completed: No Discharging clinician: Alejandro Monroy Anticipated date of discharge: 01/06/19 - Constitutional Vitals: Temp Pulse Resp BP Pulse Ox 98.8 F 84 14 132/89 97 01/06/19 07:29 01/06/19 07:29 01/06/19 07:29 01/06/19 07:29 01/06/19 07:29 General appearance: Present: cooperative, A&O X 3, pleasant, answers questions appropriately Exam: General: Patient is alert, no acute distress, oriented x 3 ENT: Mucous membranes moist Respiratory: Good respiratory effort. Normal breath sounds. No wheezing or crackles. Cardiovascular: Regular rate and rhythm. s1 and s2 normal No clicks, rubs, gallops, or murmurs. No pedal edema Abdomen: Abdomen is soft, nontender. Bowel sounds are present Musculoskeletal: Spontaneously moving all extremities Skin: warm, dry, intact. Neuro: Alert oriented x 3 normal cranial nerves, no focal deficits - Patient Status Disposition: Home, Self-Care Condition: Fair Functional capacity at discharge: independent ambulation Overall status at discharge: patient is progressing back to baseline - Discharge Instructions Instructions: Urinary Tract Infection in Men (DC), Sepsis (DC) Follow Up With: NONE,PCP [Primary Care Provider] - (in1 -2 weeks) Nilesh Dexter MD [Partnered Physician] - (in1 -2 weeks) - Diet and Activity Activity: resume usual activities as tolerated Diet: diabetic diet, low fat, low cholesterol, low salt diet
== END 2019-01-06 12:17 | disposition home or self-care (01) | DRG 872 ==
LOC: 2NENU → SUATTDRO 01:07 → OBSVTOIN 01:07
PROVIDERS: ADMIT Pediatrics; ATTEND Internal Medicine